=== PATIENT | female | born 1950 | race African-American/Black ===

== ENCOUNTER 2020-11-10 10:10 | Outpatient (CLI) | payer MEDICARE | END 2020-11-10 10:11 | disposition home or self-care (01) | LOC: BICMAMMO 10:10 | PROVIDERS: ATTEND Family Medicine | DX: N64.4 Mastodynia (principal) | CPT/HCPCS: 76642 ×2; 77066; G0279 ==

== ENCOUNTER → 2020-11-25 | Day surgery (SDC) | payer MEDICARE | LOC: BICULT 12:42 | PROVIDERS: ATTEND Family Medicine | PROC: 0HBT3ZX Excision of Right Breast, Percutaneous Approach, Diagnostic (ICD-10-PCS; principal; 2020-11-25) | DX: C50.411 Malignant neoplasm of upper-outer quadrant of right female breast (principal) | CPT/HCPCS: 19083; 88305; 88341; 88342 ==